=== PATIENT | female | born 1965 | race African-American/Black ===

== ENCOUNTER 2018-03-15 11:45 | Emergency (ER) | payer SELFPAY ==
[~2018-03-15] VITALS: Ht 165.1 cm; Wt 51.3 kg
[~2018-03-15 11:45] MED LIST: ATENOLOL PO; LABE100T8 PO
[2018-03-15 11:53] VITALS: BP 174/107
--- NOTE | 2018-03-15 12:02 | NUR ---
PT AMBULATES TO BED 10
--- NOTE | 2018-03-15 12:25 | NUR ---
52 YO F BIB SELF W/ C/O LEFT FINGER PAIN S/P HITTING IT ON A CHAIR 2 WEEKS AGO. LEFT PINKY FINGER PRESENTS W/ SWELLING. SMALL AMOUNT OF DISCOLORATION. CMS INTACT. NO BLEEDING. PT REPORTS THAT SHE TOOK TYLENOL LAST NIGHT AND IT WAS MINIMALL EFFECTIVE. DENIES N/V/FEVER. PT ALSO REPORTS CHEST PAIN/ARM PAIN W/ LEFT ARM PAIN LAST NIGHT. DENIES AT THIS TIME. PT REPORTS LEFT OCCIPITAL LOBE. PERRLA 3MM BILAT BRISK. BILA. HAND HOUSING DIRECTOR 3+. RR EVEN AND UNLABORED. DENIES ANY VISION CHANGES. ER MD NOTIFIED. WILL CONTINUE TO MONITOR. SAFETY PRECAUTIONS IMPLEMENTED. ER MD HOOD MADE AWARE OF ELEVATED B/P
[2018-03-15] MEDS ORDERED: ENALAPRILAT 2.5 MG/2 ML VIAL IVP ONE (12:35)
[2018-03-15 13:03] LABS: BASOPHILS % (AUTO) 0.7 % (0.0-2.0); EOSINOPHILS # (AUTO) 0.1 K/uL (0-0.4); EOSINOPHILS % (AUTO) 2.2 % (0.0-4.0); HEMATOCRIT 36.7 % (36-48); HEMOGLOBIN 12.1 g/dL (12.0-16.0); LYMPHOCYTES # (AUTO) 1.4 K/uL (2.5-16.5); LYMPHOCYTES % (AUTO) 30.8 % (20.5-51.1); MEAN CORPUSCULAR HEMOGLOBIN 32 pg (27-31); MEAN CORPUSCULAR HGB CONC 33 g/dL (33-37); MEAN CORPUSCULAR VOLUME 97.6 fL (80-94); MONOCYTES # (AUTO) 0.4 K/uL (0.8-1.0); MONOCYTES % (AUTO) 8.7 % (1.7-9.3); NEUTROPHILS # (AUTO) 2.6 K/uL (1.8-7.7); NEUTROPHILS % (AUTO) 57.6 % (42.2-75.2); PLATELET COUNT (AUTO) 175 K/uL (140-450); RED BLOOD CELL COUNT(AUTO) 3.76 MIL/uL (4.20-5.40); WHITE BLOOD COUNT (AUTO) 4.5 K/uL (4.8-10.8)
--- NOTE | 2018-03-15 13:03 | NUR ---
XRAY AT BEDSIDE
[2018-03-15 13:16] LABS: ALBUMIN 3.7 g/dL (3.4-5.0); ANION GAP 12.7 (8-16); CARBON DIOXIDE 27.6 mmol/L (21-32); POTASSIUM 3.3 mmol/L (3.5-5.1); TOTAL BILIRUBIN 0.2 mg/dL (0.0-1.0)
[2018-03-15 13:18] LABS: PROTHROMBIN TIME 9.9 secs (10.8-13.4)
--- NOTE | 2018-03-15 13:31 | NUR ---
PT. RESTING COMFORTABLY IN BED, RR EVEN AND UNLABORED. ABLE TO SPEAK IN FULL AND COMPLETE SENTENCES. WILL CONTINUE TO MONITOR.
--- NOTE | 2018-03-15 13:33 | NUR ---
Note undone in EDM - 03/15/18 at 1338 by MED[facility] 52 YO F BIB SELF W/ C/O LEFT FINGER PAIN S/P HITTING IT ON A CHAIR 2 WEEKS AGO. LEFT PINKY FINGER PRESENTS W/ SWELLING. SMALL AMOUNT OF DISCOLORATION. CMS INTACT. NO BLEEDING. PT REPORTS THAT SHE TOOK TYLENOL LAST NIGHT AND IT WAS MINIMALL EFFECTIVE. DENIES N/V/FEVER. PT ALSO REPORTS CHEST PAIN/ARM PAIN W/ LEFT ARM PAIN LAST NIGHT. DENIES AT THIS TIME. PT REPORTS LEFT OCCIPITAL LOBE. PERRLA 3MM BILAT BRISK. BILA. 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 RR EVEN AND UNLABORED. DENIES ANY VISION CHANGES. ER NOTIFIED. WILL CONTINUE TO MONITOR. SAFETY PRECAUTIONS IMPLEMENTED. ER MD HOOD MADE AWARE OF ELEVATED B/P
--- NOTE | 2018-03-15 13:55 | NUR ---
PT. TAKEN TO CT BY TECH VIA WHEELCHAIR AT THIS TIME.
[2018-03-15] MEDS ORDERED: HYDROmorphone PFS 2 MG/ML SYR IVP ONE (14:30)
[2018-03-15] MEDS ORDERED: ONDANSETRON 4 MG/2 ML VIAL IVP ONE (14:30)
--- NOTE | 2018-03-15 15:04 | NUR ---
STAR MARMOLEJO MADE AWARE OF BP 193/108
[2018-03-15] MEDS ORDERED: cloNIDine 0.1 MG TAB PO ONE (15:05)
--- NOTE | 2018-03-15 15:49 | NUR ---
pt. resting in bed, pt. is d/c at this time but per dr. snow " Until her B/P is good she can go since we just gave her medication". Will continue to monitor.
[2018-03-15 16:06] VITALS: BP 174/94
--- NOTE | 2018-03-15 16:06 | NUR ---
Patient discharged with v/s stable. Written and verbal after care instructions given and explained. Patient alert, oriented and verbalized understanding of instructions. Ambulatory with steady gait. All questions addressed prior to discharge. ID band removed. Patient advised to follow up with PMD. Rx of toradol given. Patient educated on indication of medication including possible reaction and side effects. Opportunity to ask questions provided and answered.
== END 2018-03-15 16:06 | disposition home or self-care (01) ==
LOC: MED 11:45
DX: R51 Headache (principal); I10 Essential (primary) hypertension; M79.645 Pain in left finger(s); Z88.6 Allergy status to analgesic agent; Z79.899 Other long term (current) drug therapy; Z86.73 Personal history of transient ischemic attack (TIA), and cerebral infarction without residual deficits; Z87.442 Personal history of urinary calculi
CPT/HCPCS: 29130; 36415; 70450; 73140; 80053; 81002; 81025; 85025; 85610; 85730; 93005; 96374; 96375; 99291; J1170; J2405; J3490; 96372

== ENCOUNTER 2022-01-19 14:30 | Inpatient (IN) | payer OTHER ==
[~2022-01-19] VITALS: Ht 162.6 cm; Wt 67.6 kg
--- NOTE | 2022-01-19 14:34 | NUR ---
PT TRANSPORTED TO BED 4 VIA [facility]
[2022-01-19 14:35] VITALS: BP_SYST 124; BP_SYST 181; BP_DIAS 117; BP_DIAS 83
--- NOTE | 2022-01-19 14:43 | NUR ---
DR GUERRERO AT BEDSIDE EVALUATING PT
[2022-01-19] MEDS ORDERED: fentaNYL citrate 0.05 MG/ML VIAL IVP ONE (15:00)
[2022-01-19 15:06] LABS: BASOPHILS % (AUTO) 0.6 % (0.0-2.0); EOSINOPHILS # (AUTO) 0.2 K/uL (0-0.4); EOSINOPHILS % (AUTO) 3.5 % (0.0-4.0); HEMATOCRIT 31.4 % (36-48); HEMOGLOBIN 10.5 g/dL (12.0-16.0); LYMPHOCYTES # (AUTO) 1.3 K/uL (2.5-16.5); LYMPHOCYTES % (AUTO) 27.1 % (20.5-51.1); MEAN CORPUSCULAR HEMOGLOBIN 32 pg (27-31); MEAN CORPUSCULAR HGB CONC 34 g/dL (33-37); MEAN CORPUSCULAR VOLUME 94.7 fL (80-94); MONOCYTES # (AUTO) 0.3 K/uL (0.8-1.0); MONOCYTES % (AUTO) 7.2 % (1.7-9.3); NEUTROPHILS # (AUTO) 2.9 K/uL (1.8-7.7); NEUTROPHILS % (AUTO) 61.6 % (42.2-75.2); PLATELET COUNT (AUTO) 245 K/uL (140-450); RED BLOOD CELL COUNT(AUTO) 3.31 MIL/uL (4.20-5.40); RED CELL DISTRIBUTION WIDTH 12.9 % (11.6-13.7); WHITE BLOOD COUNT (AUTO) 4.7 K/uL (4.8-10.8)
--- NOTE | 2022-01-19 15:07 | NUR ---
PT TAKEN TO CT VIA LYNDA. PRIMARY NURSE WITH RN SOCIAL SERVICES
--- NOTE | 2022-01-19 15:17 | NUR ---
PT BACK FROM CT AND CONNECTED TO MONITOR
[2022-01-19 15:22] LABS: ALBUMIN 3.5 g/dL (3.4-5.0); ANION GAP 9.8 (8-16); ASPARTATE AMINOTRANSFERASE 33 U/L (15-37); CARBON DIOXIDE 28.6 mmol/L (21-32); CHLORIDE 106 mmol/L (98-107); CREATININE 1.5 mg/dL (0.6-1.3); GFR ARICAN-AMERICAN 46 mL/min (>90); GLUCOSE 108 mg/dL (74-106); POTASSIUM 3.4 mmol/L (3.5-5.1); SODIUM SERUM 141 mmol/L (136-145); TOTAL BILIRUBIN 0.3 mg/dL (0.0-1.0); UREA NITROGEN, BLOOD 22 mg/dL (7-18)
--- NOTE | 2022-01-19 15:40 | NUR ---
56 y/o female biba from home with c/o headache x today. Patient is c/o 8/10 throbbing head pain. Patient reports LOC on twice. Patient also has tingling to left side of the face. Patient is stating her voice is slurring. Patient is reporting generalized weakness also. Medical History: Brain Bleed, Aneurysm, HTN, Heart Valve ALLERGY: MORPHINE
--- NOTE | 2022-01-19 17:16 | NUR ---
PORFIRIO SWAB COLLECTED AND HANDED TO ACQUISITION ANALYST
--- NOTE | 2022-01-19 17:23 | NUR ---
56/F BIBA FROM HOME. PER EMS PATIENT CALLED 911 C/O 8/10 THROBBING HEADACHE, TINGLING TO LEFT SIDE AND SLURRED SPEECH TODAY. PATIENT REPORTS HX OF STROKE, STATING SHE HAD TWO SYNCOPAL EPISODES ON WEDNESDAY. 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
[2022-01-19] MEDS ORDERED: ONDANSETRON 4 MG/2 ML VIAL IVP PRN (18:10)
[2022-01-19] MEDS ORDERED: ACETAMINOPHEN 325 MG TAB PO PRN (18:10)
[2022-01-19] MEDS ORDERED: KETOROLAC 15 MG/ML VIAL IVP PRN (18:10)
[2022-01-19] MEDS ORDERED: CLONIDINE HYDROCHLORIDE 0.1 MG TAB PO PRN (18:20)
[2022-01-19] MEDS ORDERED: GABA100C PO (19:07)
[2022-01-19] MEDS ORDERED: CLON0.2T16 PO (19:07)
[2022-01-19] MEDS ORDERED: ZOLP5TAB1 PO (19:07)
--- NOTE | 2022-01-19 19:25 | NUR ---
Patient report given to ZANE Palma. Transfer of care at this time.
--- NOTE | 2022-01-19 19:45 | NUR ---
PATIENT SITTING IN BED COMFORTABLY. DANIELLA SIDE RAILS UP FOR SAFETY. BED LOW AND LOCKED. ALL NEEDS MET.
--- NOTE | 2022-01-19 20:04 | NUR ---
Patient will be admitted to care of CHAPARRITA TAVERAS. Admited to [facility]EL[facility]. Will go to room 125B. Belongings list completed. Report to TABITHA CHOW. TRANSFER OF CARE.
--- NOTE | 2022-01-19 20:04 | NUR ---
Chart checked and completed.
[2022-01-19] MEDS: METOPROLOL 25 MG TAB PO SCH (21:00)
--- NOTE | 2022-01-20 00:10 | NUR ---
PATIENT TO ROOM FROM E.R 2015 AWAKE ALERT NO C/O OF PAIN TEMP 98 B/P 184/107. GIVEN LOPRESSOR 25 MG. CAN HAVE PRN CATAPRES 0.1 PRN PATIENT C/O OF HEADACE GIVEN 650 MG PO. NO DISTRESS NOTED.
[2022-01-20] MEDS ORDERED: ZOLPIDEM 5 MG TAB PO PRN (01:25)
[2022-01-20 04:00] VITALS: BP 184/100
[2022-01-20 05:27] LABS: BASOPHILS % (AUTO) 0.6 % (0.0-2.0); EOSINOPHILS # (AUTO) 0.2 K/uL (0-0.4); EOSINOPHILS % (AUTO) 3.7 % (0.0-4.0); HEMATOCRIT 29.6 % (36-48); HEMOGLOBIN 9.9 g/dL (12.0-16.0); LYMPHOCYTES # (AUTO) 1.7 K/uL (2.5-16.5); LYMPHOCYTES % (AUTO) 36.5 % (20.5-51.1); MEAN CORPUSCULAR HEMOGLOBIN 32 pg (27-31); MEAN CORPUSCULAR HGB CONC 34 g/dL (33-37); MEAN CORPUSCULAR VOLUME 94.8 fL (80-94); MONOCYTES # (AUTO) 0.5 K/uL (0.8-1.0); MONOCYTES % (AUTO) 10.9 % (1.7-9.3); NEUTROPHILS # (AUTO) 2.2 K/uL (1.8-7.7); NEUTROPHILS % (AUTO) 48.3 % (42.2-75.2); PLATELET COUNT (AUTO) 229 K/uL (140-450); RED BLOOD CELL COUNT(AUTO) 3.12 MIL/uL (4.20-5.40); RED CELL DISTRIBUTION WIDTH 12.7 % (11.6-13.7); WHITE BLOOD COUNT (AUTO) 4.5 K/uL (4.8-10.8)
[2022-01-20 06:20] LABS: ANION GAP 10.2 (8-16); CARBON DIOXIDE 29.6 mmol/L (21-32); CREATININE 1.2 mg/dL (0.6-1.3); POTASSIUM 3.8 mmol/L (3.5-5.1); TOTAL BILIRUBIN 0.2 mg/dL (0.0-1.0)
--- NOTE | 2022-01-20 07:57 | NUR ---
SBAR REPORT RECEIVED FROM CLAUIDNE RN, ALL CARES ASSUMED. PT RESTING IN BED WITH EYES CLOSED. BED IN LOW AND LOCKED POSITION, CALL LIGHT WITHIN REACH.
[2022-01-20 08:00] VITALS: BP 188/105
[2022-01-20] MEDS ORDERED: hydrALAZINE 10 MG TAB PO PRN (08:15)
[2022-01-20] MEDS: NIFEdipine 60 MG TABER PO SCH ×2 (08:33→09:00)
[2022-01-20] MEDS: METOPROLOL 25 MG TAB PO SCH (08:34)
[2022-01-20] MEDS ORDERED: ENOXAPARIN 40 MG/0.4 ML SYR SUBQ SCH (09:00)
--- NOTE | 2022-01-20 09:40 | NUR ---
PATIENT HAS BEEN SCREENED AND CATEGORIZED LOW NUTRITION RISK. PATIENT WILL BE SEEN WITHIN 7 DAYS OF ADMISSION. 01/26/[address]
--- NOTE | 2022-01-20 11:32 | NUR ---
DC [age]ANN[age] YRS OLD FEMALE PATIENT WAS ADMITTED FROM HOME WITH A DX OF HEADACHES AND SYNCOPE. PATIENT HAS A HX OF HTN AND HEMORRHAGIC CVA. CXR NEGATIVE. RAPID COVID TEST NEGATIVE. CT HEAD/NECK ANGIOGRAPHY SHOWED MILD ATHEROSCLEROSIS OF THE AORTIC ARCH AND A 3MM ANEURISM ARISING FROM THE POSTERIOR ASPECT OF THE DISTAL CLINOIDAL LEFT INTERNAL CAROTID ARTERY. CONSULTED WITH TRAMPOLINE TEAM COACH. ORDERED MRI OF THE BRAIN WITHOUT CONTRAST. FAXED TO [facility]. CALLED [facility] SPOKE WITH AROLDO ELAM NO BACK LINE COOK FOR THE WEEK. CALLED [facility] SPOKE WITH SHAVON ELAM WILL REVIEW AND CALL BACK. CM TO FOLLOW. Addendum: 01/20/22 at 1431 by Noni Rosen RN DC PLANNING: CM SPOKE WITH PATIENT REGARDING POSSIBLE TRANSFER TO [facility] FOR MRI AND FURTHER EXAM. PATIENT AGREED AND STATED WAS THERE BEFORE WITH THE SAME REASON. RECEIVED A CALL FROM [facility] SPOKE WITH DEMARCUS HE PROVIDED THE AUTH # FOR [facility] [id number] AND FOR TRANSPORT [facility] [id number]. CALLED [facility] AND PROVIDE THE AUTH TO SHAVON ELMORECENSUS CLERK AND ARRANGED TRANSPORT WITH [facility], PLACE IT WILL CALL. . CM TO FOLLOW Addendum: 08/02/22 at 1730 by Noni Rosen RN DC PLANNING: PATIENT GOT ACCEPTED AT [facility] GOING TO ROOM 330B # TO GIVE REPORT [phone] FRAGA. ARRANGED TRANSPORT WITH [facility] ASSISTANT GUEST SERVICES MANAGER TIME 7PM. NOTIFIED DR TAVERAS AND LUIS LU.
[2022-01-20 12:00] VITALS: BP 175/99
[2022-01-20] MEDS ORDERED: HYDROmorphone 1 MG/ML AMP IVP PRN (14:00)
[2022-01-20 16:00] VITALS: BP 166/88
[2022-01-20] MEDS ORDERED: hydrALAZINE 25 MG TAB PO PRN (17:05)
[2022-01-20] MEDS ORDERED: NACL 0.9% 1,000 ML IV SCH (17:05)
[2022-01-20] MEDS ORDERED: NIFE90TE63 PO (17:38)
--- NOTE | 2022-01-20 18:08 | NUR ---
REPORT GIVEN TO LEE AT [facility] [phone], DR. FRAGA IS ACCEPTING PHYSICIAN.
[2022-01-20 18:16] VITALS: BP 166/88
--- NOTE | 2022-01-20 19:09 | NUR ---
PT TRANSFERRED TO [facility] WITH [facility] FOR MRI. TRANSFER PAPERWORK AND COPY OF IMAGING SENT WITH EMS. DISCHARGE PAPERWORK REVIEWED WITH PT WHO VERBALIZED UNDERSTANDING. PT STABLE. TRANSFERRED WITH 20 L AC IV INTACT AT TIME OF DISCHARGE, EMT AWARE OF IV.
[2022-01-21] MEDS ORDERED: NIFEdipine 90 MG TABER PO SCH (09:00)
== END 2022-01-20 19:10 | disposition short-term general hospital (02) | DRG 58 ==
LOC: MED 14:30 → MTU 18:16 → MMU 18:30
PROVIDERS: ADMIT Internal Medicine; ATTEND Internal Medicine
DX: I67.1 Cerebral aneurysm, nonruptured (principal); N17.9 Acute kidney failure, unspecified; I10 Essential (primary) hypertension; I12.9 Hypertensive chronic kidney disease with stage 1 through stage 4 chronic kidney disease, or unspecified chronic kidney disease; N18.9 Chronic kidney disease, unspecified; Z20.822 Contact with and (suspected) exposure to COVID-19
CPT/HCPCS: 36415; 70450; 71045; 80053; 83735; 84484; 85025; 87081; 93005; 96374; 99285; J1170; J1650; J1885; J3010; Q9967